=== PATIENT | male | born 1940 | race Caucasian/White ===

== ENCOUNTER 2017-04-13 10:17 | Inpatient (IN) | payer MEDICARE, OTHER ==
[2017-04-13] MEDS ORDERED: ONDANSETRON 4 MG/2 ML VIAL IVP STA (10:32)
[2017-04-13] MEDS ORDERED: PANTOPRAZOLE 40 MG/10 ML VIAL IVP STA (10:32)
[2017-04-13] MEDS ORDERED: SODIUM CHLORIDE 0.9% 500 ML IV STA (10:32)
--- NOTE | 2017-04-13 10:59 | ED ---
General Adult HPI - General Chief complaint: GI Bleed Stated complaint: GI Bleed Time Seen by Provider: 04/13/17 10:32 Source: patient, EMS, RN notes reviewed, old records reviewed Mode of arrival: EMS - History of Present Illness Initial comments: Chief complaint history of present illness this is a 76-year-old male who lives in a nursing facility. EMS was called because he had vomiting since last night. Has become coffee ground like material. This was witnessed by EMS at the facility. Patient does have past medical problems including schizophrenia and dementia so his answers to questions are not always fully accurate. Old chart obtained for confirmation. - Related Data Home Medications Medication Instructions Recorded Confirmed Aspirin 81 mg PO HS 01/21/15 04/13/17 Cranberry Conc/C/Bacill Coag 1 tab PO DAILY 01/21/15 04/13/17 [Cranberry Tablet] Levothyroxine Sodium [Synthroid] 50 mcg PO DAILY 01/21/15 04/13/17 Multivitamins, Thera [Theragran] 1 tab PO DAILY 01/21/15 04/13/17 cloZAPine [Clozaril] 200 mg PO BID 01/21/15 04/13/17 Divalproex Sodium [Depakote] 125 mg PO HS 04/13/17 04/13/17 HYDROcodone/APAP 5-325MG [[place] 1 tab PO DAILY PRN 04/13/17 04/13/17 5-325] Lisinopril [Prinivil] 5 mg PO DAILY 04/13/17 04/13/17 Pravastatin Sodium [Pravachol] 40 mg PO HS 04/13/17 04/13/17 Ranitidine HCl [Zantac] 75 mg PO HS 04/13/17 04/13/17 Tamsulosin HCl [Flomax] 0.4 mg PO HS 04/13/17 04/13/17 amLODIPine [Norvasc] 5 mg PO DAILY 04/13/17 04/13/17 Allergies Allergy/AdvReac Type Severity Reaction Status Date / Time No Known Allergies Allergy Verified 04/13/17 13:11 Review of Systems ROS Statement: Those systems with pertinent positive or pertinent negative responses have been documented in the HPI. Review of systems at this time the patient's answering no to chest pain headache denies abdominal pain. Patient is able to move upper and lower extremities without apparent difficulty. All systems were reviewed. Past medical problems significant for heart disease, previous CVA, hyperlipidemia, hypertension and hypothyroidism. Is also history from old chart suspecting schizophrenia. Patient denies smoking. No alcohol use of late. Family history patient cannot remember there is any cancer in the family. ROS Other: All systems not noted in ROS Statement are negative. Past Medical History Past Medical History: Coronary Artery Disease (CAD), CVA/TIA, Dementia, Hyperlipidemia, Hypertension, Thyroid Disorder History of Any Multi-Drug Resistant Organisms: None Reported Past Surgical History: No Surgical Hx Reported Past Psychological History: Schizophrenia Smoking Status: Never smoker Past Alcohol Use History: None Reported Past Drug Use History: None Reported General Exam - General Exam Comments Initial Comments: General: The patient is awake and alert, in no distress, and does not appear acutely ill. Brought emergency room because of coffee ground emesis since last night. Temp afebrile pulse 100 respiratory rate 20 pulse ox 94% on room air blood pressure 134/68 Eye: Pupils are equal, round and reactive to light, extra-ocular movements are intact ; there is normal conjunctiva bilaterally. No signs of icterus. Ears, nose, mouth and throat: There are moist mucous membranes and no oral lesions. Neck: The neck is supple, there is no tenderness, no anterior cervical lymphadenopathy. No complaint of discomfort with neck movement. Cardiovascular: There is a regular rate and rhythm. No murmur, rub or gallop is appreciated. Respiratory: Lungs are clear to auscultation, respirations are non-labored, breath sounds are equal. No wheezes, stridor, rales, or rhonchi. He is denying shortness of breath. Gastrointestinal: Patient's abdomen appears to be bloated. Patient denies this is the case. Mildly tympanitic. Active bowel sounds. No organomegaly appreciated. Patient has been vomiting coffee ground material. The patient has dark blood around his mouth. Currently no gastric material available to test. Rectal examination done with registered nurse [place]. Hard stool noted in the vault. Guaiac negative at bedside. Sample sent on guaiac card to the lab. Back: There is no tenderness to palpation in the midline. Musculoskeletal: Normal ROM, no tenderness, There is no pedal edema. There is no calf tenderness or swelling. Sensation intact. Pulses equal bilaterally 2+. Neurological: Moving upper and lower extremities in bed without difficulty. Skin: Skin is warm and dry and no rashes or lesions are noted. Psychiatric: History of schizophrenia. Cooperative now. Course Vital Signs 04/13/17 04/13/17 04/13/17 10:48 10:50 12:00 Temperature 99 F Pulse Rate 100 103 H Respiratory 20 20 Rate Blood Pressure 134/68 135/66 O2 Sat by Pulse 94 L 94 L Oximetry Medical Decision Making - Medical Decision Making Medical decision making the patient's white count 17.5 hemoglobin 15 hematocrit of 48. Stool guaiac was negative. INR 1.0. Potassium 4.1. BUN 31 creatinine 1.3 through the GFR 52. Glucose 217. Cardiac enzymes normal troponin less than 0.012. X-rays of the abdomen were done and reviewed by radiologist his impression is there is elevation of the left diaphragm. There is mild gaseous distention of the colon. There are scattered air-fluid levels. No free air is seen. No unusual calcifications are seen. Impression findings most consistent with mild ileus. As read by Dr. Gamboa I spoke with Dr. Wakefield on-call for Dr. Garcias. Patient be admitted his service. With a gastroenterology consultation. - Lab Data Result diagrams: 04/13/17 11:02 04/13/17 11:02 Lab Results 04/13/17 04/13/17 04/13/17 Range/Units 11:00 11:02 11:02 WBC 17.5 H (3.8-10.6) k/uL RBC 4.92 (4.30-5.90) m/uL Hgb 15.6 (13.0-17.5) gm/dL Hct 48.0 (39.0-53.0) % MCV 97.5 (80.0-100.0) fL MCH 31.6 (25.0-35.0) pg MCHC 32.4 (31.0-37.0) g/dL RDW 13.5 (11.5-15.5) % Plt Count 213 (150-450) k/uL Neutrophils % 87 % Lymphocytes % 9 % Monocytes % 4 % Eosinophils % 0 % Basophils % 0 % Neutrophils # 15.2 H (1.3-7.7) k/uL Lymphocytes # 1.5 (1.0-4.8) k/uL Monocytes # 0.6 (0-1.0) k/uL Eosinophils # 0.0 (0-0.7) k/uL Basophils # 0.0 (0-0.2) k/uL PT 10.3 (9.0-12.0) sec INR 1.0 (<1.2) APTT 28.5 (22.0-30.0) sec Sodium (137-145) mmol/L Potassium (3.5-5.1) mmol/L Chloride (98-107) mmol/L Carbon Dioxide (22-30) mmol/L Anion Gap mmol/L BUN (9-20) mg/dL Creatinine (0.66-1.25) mg/dL Est GFR (MDRD) Af Amer (>60 ml/min/1.73 sqM) Est GFR (MDRD) Non-Af (>60 ml/min/1.73 sqM) Glucose (74-99) mg/dL Calcium (8.4-10.2) mg/dL Total Bilirubin (0.2-1.3) mg/dL AST (17-59) U/L ALT (21-72) U/L Alkaline Phosphatase (38-126) U/L Total Creatine Kinase (55-170) U/L CK-MB (CK-2) (0.0-2.4) ng/mL CK-MB (CK-2) Rel Index Troponin I (0.000-0.034) ng/mL Total Protein (6.3-8.2) g/dL Albumin (3.5-5.0) g/dL Stool Occult Blood Negative (Negative) 04/13/17 04/13/17 Range/Units 11:02 11:02 WBC (3.8-10.6) k/uL RBC (4.30-5.90) m/uL Hgb (13.0-17.5) gm/dL Hct (39.0-53.0) % MCV (80.0-100.0) fL MCH (25.0-35.0) pg MCHC (31.0-37.0) g/dL RDW (11.5-15.5) % Plt Count (150-450) k/uL Neutrophils % % Lymphocytes % % Monocytes % % Eosinophils % % Basophils % % Neutrophils # (1.3-7.7) k/uL Lymphocytes # (1.0-4.8) k/uL Monocytes # (0-1.0) k/uL Eosinophils # (0-0.7) k/uL Basophils # (0-0.2) k/uL PT (9.0-12.0) sec INR (<1.2) APTT (22.0-30.0) sec Sodium 145 (137-145) mmol/L Potassium 4.1 (3.5-5.1) mmol/L Chloride 103 (98-107) mmol/L Carbon Dioxide 27 (22-30) mmol/L Anion Gap 15 mmol/L BUN 31 H (9-20) mg/dL Creatinine 1.33 H (0.66-1.25) mg/dL Est GFR (MDRD) Af Amer >60 (>60 ml/min/1.73 sqM) Est GFR (MDRD) Non-Af 52 (>60 ml/min/1.73 sqM) Glucose 217 H (74-99) mg/dL Calcium 9.6 (8.4-10.2) mg/dL Total Bilirubin 0.5 (0.2-1.3) mg/dL AST 26 (17-59) U/L ALT 42 (21-72) U/L Alkaline Phosphatase 92 (38-126) U/L Total Creatine Kinase 35 L (55-170) U/L CK-MB (CK-2) 1.3 (0.0-2.4) ng/mL CK-MB (CK-2) Rel Index 3.7 Troponin I <0.012 (0.000-0.034) ng/mL Total Protein 7.8 (6.3-8.2) g/dL Albumin 4.4 (3.5-5.0) g/dL Stool Occult Blood (Negative) Disposition Clinical Impression: Upper gastrointestinal bleed Disposition: ADMITTED IP TO THIS [facility] Condition: Fair Referrals: Rob He MD [Primary Care Provider] - 1-2 days
[2017-04-13 11:24] LABS: Basophils % (A) 0 %; CHCM 31.9; Eosinophils % (A) 0 %; HDW 2.27; HGB 15.6 gm/dL (13.0-17.5); Luc # (Auto) 0.18; Luc % (Auto) 1; Lymphocytes # (A) 1.5 k/uL (1.0-4.8); Lymphocytes % (A) 9 %; MCH 31.6 pg (25.0-35.0); MCHC 32.4 g/dL (31.0-37.0); MCV 97.5 fL (80.0-100.0); Mean Platelet Volume 7.8; Monocytes # (A) 0.6 k/uL (0-1.0); Monocytes % (A) 4 %; Neutrophils # (A) 15.2 k/uL (1.3-7.7); Neutrophils % (A) 87 %; RBC 4.92 m/uL (4.30-5.90); RDW 13.5 % (11.5-15.5); WBC 17.5 k/uL (3.8-10.6); WBC (Perox) 17.77
[2017-04-13 11:40] LABS: Partial Thromboplastin Time 28.5 sec (22.0-30.0); Prothrombin Time 10.3 sec (9.0-12.0)
[2017-04-13 11:45] LABS: Creatine Kinase 35 U/L (55-170)
[2017-04-13 11:52] LABS: ALT 42 U/L (21-72); AST 26 U/L (17-59); Alkaline Phosphatase 92 U/L (38-126); Anion Gap 15 mmol/L; Blood Urea Nitrogen 31 mg/dL (9-20); Calcium 9.6 mg/dL (8.4-10.2); Carbon Dioxide 27 mmol/L (22-30); Chloride 103 mmol/L (98-107); Glucose 217 mg/dL (74-99); Non-African American GFR(MDRD) 52 (>60 ml/min/1.73 sqM); Potassium 4.1 mmol/L (3.5-5.1); Sodium 145 mmol/L (137-145); Total Bilirubin 0.5 mg/dL (0.2-1.3); Total Protein 7.8 g/dL (6.3-8.2)
[2017-04-13 11:57] LABS: Creatine Kinase MB 1.3 ng/mL (0.0-2.4); Troponin I <0.012 ng/mL (0.000-0.034)
--- NOTE | 2017-04-13 12:26 | XR ---
EXAMINATION TYPE: XR abdomen 2V , 2 VIEWS DATE OF EXAM ORDERED: 04/13/2017 HISTORY: Pain. COMPARISON: None. FINDINGS: There is elevation of the left hemidiaphragm. There is mild gaseous distention of colon. T here are scattered air-fluid levels. No free air is seen. No unusual calcifications are seen. IMPRESSION: FINDINGS MOST CONSISTENT WITH MILD ILEUS.
[2017-04-13] MEDS ORDERED: NALOXONE 0.4 MG/ML 1 ML VIAL IV PRN (13:59)
[2017-04-13] MEDS ORDERED: ONDANSETRON 4 MG/2 ML VIAL IVP PRN (13:59)
[2017-04-13 15:31] VITALS: BMI 25.0
--- NOTE | 2017-04-13 16:22 | P.HPIM ---
History of Present Illness Patient is 76-year-old with history of schizophrenia and some kind of dementia came in with complaints of multiple episodes of nausea vomiting and coffee- ground emesis. I'm unable to get any History from the patient. Patient had an abdominal x-ray which did show ileus although patient is not having any nausea vomiting. Patient was started on Protonix twice a day will give something for constipation if it improves patient will not require any NG tube. Although patient will be nothing by mouth and patient was started on IV fluids. Gastroenterology was consulted for upper GI bleed. Review of Systems Unable to often due to his clinical condition Past Medical History Past Medical History: Coronary Artery Disease (CAD), CVA/TIA, Dementia, Hyperlipidemia, Hypertension, Thyroid Disorder Additional Past Medical History / Comment(s): Tardive dyskinesia, seizure disorder, chronic constipation, glaucoma, DM, History of Any Multi-Drug Resistant Organisms: None Reported Past Surgical History: No Surgical Hx Reported Past Psychological History: Schizophrenia Smoking Status: Never smoker Past Alcohol Use History: None Reported Past Drug Use History: None Reported - Past Family History Mother History Unknown: Yes Medications and Allergies Home Medications Medication Instructions Recorded Confirmed Type Aspirin 81 mg PO HS 01/21/15 04/13/17 History Cranberry Conc/C/Bacill Coag 1 tab PO DAILY 01/21/15 04/13/17 History [Cranberry Tablet] Levothyroxine Sodium [Synthroid] 50 mcg PO DAILY 01/21/15 04/13/17 History Multivitamins, Thera [Theragran] 1 tab PO DAILY 01/21/15 04/13/17 History cloZAPine [Clozaril] 200 mg PO BID 01/21/15 04/13/17 History Divalproex Sodium [Depakote] 125 mg PO HS 04/13/17 04/13/17 History HYDROcodone/APAP 5-325MG [[place] 1 tab PO DAILY PRN 04/13/17 04/13/17 History 5-325] Lisinopril [Prinivil] 5 mg PO DAILY 04/13/17 04/13/17 History Pravastatin Sodium [Pravachol] 40 mg PO HS 04/13/17 04/13/17 History Ranitidine HCl [Zantac] 75 mg PO HS 04/13/17 04/13/17 History Tamsulosin HCl [Flomax] 0.4 mg PO HS 04/13/17 04/13/17 History amLODIPine [Norvasc] 5 mg PO DAILY 04/13/17 04/13/17 History Allergies Allergy/AdvReac Type Severity Reaction Status Date / Time No Known Allergies Allergy Verified 04/13/17 13:11 Physical Exam Vitals: Vital Signs Temp Pulse Pulse Resp BP BP Pulse Ox 04/13/17 15:24 98.3 F 89 16 129/73 97 04/13/17 14:43 98 F 94 18 130/74 91 L 04/13/17 14:19 99.1 F 04/13/17 14:00 95 18 127/68 91 L 04/13/17 12:00 103 H 20 135/66 94 L 04/13/17 10:50 99 F 04/13/17 10:48 100 20 134/68 94 L Intake and Output 04/13/17 04/13/17 04/13/17 06:59 14:59 22:59 Intake Total 500 Balance 500 Intake: Amount of Fluid Infused ( 500 ml) Other: Weight 68.039 kg 68.039 kg Patient Weight 04/14/17 06:59 Weight 68.039 kg PHYSICAL EXAMINATION: GENERAL: The patient is alert and able to assess orientation as patient is mostly nonverbal doesn't answer much of questions, not in any acute distress. Well developed, well nourished. HEENT: Pupils are round and equally reacting to light. EOMI. No scleral icterus. No conjunctival pallor. Normocephalic, atraumatic. No pharyngeal erythema. No thyromegaly. CARDIOVASCULAR: S1 and S2 present. No murmurs, rubs, or gallops. PULMONARY: Chest is clear to auscultation, no wheezing or crackles. ABDOMEN: Soft, distended, sluggish bowel sounds no organomegaly no tenderness. MUSCULOSKELETAL: No joint swelling or deformity. EXTREMITIES: No cyanosis, clubbing, or pedal edema. NEUROLOGICAL: Gross neurological examination did not reveal any focal deficits. SKIN: No rashes. Results CBC & Chem 7: 04/13/17 11:02 04/13/17 11:02 Labs: Abnormal Lab Results - Last 24 Hours (Table) 04/13/17 04/13/17 04/13/17 Range/Units 11:02 11:02 11:02 WBC 17.5 H (3.8-10.6) k/uL Neutrophils # 15.2 H (1.3-7.7) k/uL BUN 31 H (9-20) mg/dL Creatinine 1.33 H (0.66-1.25) mg/dL Glucose 217 H (74-99) mg/dL Total Creatine Kinase 35 L (55-170) U/L Assessment and Plan Plan: #1 upper GI bleed: Secondary to possible gastritis for which patient on Protonix twice a day gastric body was consulted. #2 possible ileus: Patient will be nothing by mouth, IV fluids and an enema. #3 acute renal failure: Secondary to severe intravascular well and patient expected to improve with IV fluids. #4 leukocytosis: Reactive without any other signs or symptoms of infection. #5 type 2 diabetes mellitus: Sliding scale insulin. #5 hypertension continue with amlodipine hold off on losartan due to acute renal failure #7 hypothyroidism continue with levothyroxine #8 seizure disorder for which patient is on Depakote which will be continued no history of recent seizures
[2017-04-13] MEDS ORDERED: LACTULOSE 20 GM/30 ML CUP PO ONE (16:38)
[2017-04-13] MEDS: SODIUM CHLORIDE 0.9% 1,000 ML IV SCH (17:48)
[2017-04-13] MEDS: INSULIN LISPRO (humaLOG) 300 UNIT/3 ML VIAL SQ SCH ×2 (19:44→21:16)
[2017-04-13 19:52] LABS: Glucose,Whole Blood 154 mg/dL (75-99)
[2017-04-13] MEDS: PANTOPRAZOLE 40 MG/10 ML VIAL IV SCH (21:16)
[2017-04-13] MEDS: DIVALPROEX SPRINKLE 125 MG CAP.SPRINK PO SCH (21:16)
[2017-04-14] MEDS: LEVOTHYROXINE 50 MCG TAB PO SCH (06:10)
[2017-04-14] MEDS: SODIUM CHLORIDE 0.9% 1,000 ML IV SCH ×3 (06:10→20:03)
[2017-04-14] MEDS: INSULIN LISPRO (humaLOG) 300 UNIT/3 ML VIAL SQ SCH ×4 (07:19→20:04)
[2017-04-14 07:20] LABS: Glucose,Whole Blood 121 mg/dL (75-99)
[2017-04-14] MEDS: amLODIPine 5 MG TAB PO SCH (07:22)
[2017-04-14] MEDS: PANTOPRAZOLE 40 MG/10 ML VIAL IV SCH ×2 (07:22→20:04)
[2017-04-14 07:50] LABS: Basophils % (A) 0 %; CH 31.2; CHCM 31.8; Eosinophils # (A) 0.1 k/uL (0-0.7); Eosinophils % (A) 1 %; HDW 2.28; Luc # (Auto) 0.38; Luc % (Auto) 2; Lymphocytes # (A) 3.2 k/uL (1.0-4.8); Lymphocytes % (A) 20 %; MCH 31.6 pg (25.0-35.0); MCHC 31.9 g/dL (31.0-37.0); MCV 98.8 fL (80.0-100.0); Mean Platelet Volume 8.3; Monocytes # (A) 0.7 k/uL (0-1.0); Monocytes % (A) 5 %; Neutrophils # (A) 11.9 k/uL (1.3-7.7); Neutrophils % (A) 73 %; RBC 3.85 m/uL (4.30-5.90); RDW 13.8 % (11.5-15.5); WBC 16.4 k/uL (3.8-10.6); WBC (Perox) 16.79
[2017-04-14 07:54] LABS: ALT 33 U/L (21-72); AST 19 U/L (17-59); Alkaline Phosphatase 72 U/L (38-126); Anion Gap 9 mmol/L; Blood Urea Nitrogen 24 mg/dL (9-20); Calcium 8.5 mg/dL (8.4-10.2); Carbon Dioxide 24 mmol/L (22-30); Chloride 111 mmol/L (98-107); Glucose 127 mg/dL (74-99); Non-African American GFR(MDRD) >60 (>60 ml/min/1.73 sqM); Sodium 144 mmol/L (137-145); Total Bilirubin 0.5 mg/dL (0.2-1.3); Total Protein 6.2 g/dL (6.3-8.2)
[2017-04-14 07:58] LABS: HGB 12.1 gm/dL (13.0-17.5)
[2017-04-14] MEDS ORDERED: PANTOPRAZOLE 40 MG/10 ML VIAL IV SCH (09:00)
[2017-04-14 10:43] LABS: Hemoglobin A1C 6.8 % (4.2-6.1)
[2017-04-14 11:45] LABS: Glucose,Whole Blood 108 mg/dL (75-99)
[2017-04-14] MEDS ORDERED: LACTULOSE 20 GM/30 ML CUP PO ONE (12:47)
[2017-04-14] MEDS ORDERED: LACTULOSE 20 GM/30 ML CUP PO PRN (12:48)
[2017-04-14] MEDS ORDERED: POLYETHYLENE GLYCOL 3350 17 GM POWD.PACK PO PRN (12:48)
--- NOTE | 2017-04-14 14:40 | P.PN ---
Subjective Patient was admitted with upper GI bleed and ileus patient had a small bowel movement his bowel sounds are present today. Unable to get much of the history from the patient Objective - Vital Signs Vital signs: Vital Signs Temp 98.6 F 04/14/17 07:38 Pulse 80 04/14/17 07:38 Resp 16 04/14/17 07:38 BP 154/73 04/14/17 07:38 Pulse Ox 91 L 04/14/17 07:38 Intake & Output 04/13/17 04/14/17 04/14/17 18:59 06:59 18:59 Intake Total 500 1150 800 Balance 500 1150 800 Weight 68.039 kg Intake: Amount of Fluid Infused ( 500 ml) Intake, IV Titration 1150 800 Amount Sodium Chloride 0.9% 1, 1150 800 000 ml @ 100 mls/hr IV . Q10H [facility] Rx#:[id number] Other: Voiding Method Toilet # Voids 1 - Exam GENERAL: The patient is alert and able to assess orientation as patient is mostly nonverbal doesn't answer much of questions, not in any acute distress. Well developed, well nourished. HEENT: Pupils are round and equally reacting to light. EOMI. No scleral icterus. No conjunctival pallor. Normocephalic, atraumatic. No pharyngeal erythema. No thyromegaly. CARDIOVASCULAR: S1 and S2 present. No murmurs, rubs, or gallops. PULMONARY: Chest is clear to auscultation, no wheezing or crackles. ABDOMEN: Soft, distended, bowel sounds are present MUSCULOSKELETAL: No joint swelling or deformity. EXTREMITIES: No cyanosis, clubbing, or pedal edema. NEUROLOGICAL: Gross neurological examination did not reveal any focal deficits. SKIN: No rashes. - Labs CBC & Chem 7: 04/14/17 07:01 04/14/17 07:01 Labs: Abnormal Lab Results - Last 24 Hours (Table) 04/13/17 04/13/17 04/14/17 Range/Units 11:02 19:51 06:39 WBC (3.8-10.6) k/uL RBC (4.30-5.90) m/uL Hgb (13.0-17.5) gm/dL Hct (39.0-53.0) % Neutrophils # (1.3-7.7) k/uL Chloride (98-107) mmol/L BUN (9-20) mg/dL Glucose (74-99) mg/dL POC Glucose (mg/dL) 154 H 121 H (75-99) mg/dL Hemoglobin A1c 6.8 H (4.2-6.1) % Total Protein (6.3-8.2) g/dL Albumin (3.5-5.0) g/dL 04/14/17 04/14/17 04/14/17 Range/Units 07:01 07:01 11:40 WBC 16.4 H (3.8-10.6) k/uL RBC 3.85 L (4.30-5.90) m/uL Hgb 12.1 L D (13.0-17.5) gm/dL Hct 38.0 L (39.0-53.0) % Neutrophils # 11.9 H (1.3-7.7) k/uL Chloride 111 H (98-107) mmol/L BUN 24 H (9-20) mg/dL Glucose 127 H (74-99) mg/dL POC Glucose (mg/dL) 108 H (75-99) mg/dL Hemoglobin A1c (4.2-6.1) % Total Protein 6.2 L (6.3-8.2) g/dL Albumin 3.4 L (3.5-5.0) g/dL Assessment and Plan Plan: #1 upper GI bleed: Secondary to possible gastritis for which patient on Protonix twice a day gastric body was consulted. #2 possible ileus: Patient will be started on diet will advance as tolerated will use lactulose for constipation #3 acute renal failure: Secondary to severe intravascular well and patient expected to improve with IV fluids. #4 leukocytosis: Reactive without any other signs or symptoms of infection. #5 type 2 diabetes mellitus: Sliding scale insulin. #5 hypertension continue with amlodipine hold off on losartan due to acute renal failure #7 hypothyroidism continue with levothyroxine #8 seizure disorder for which patient is on Depakote which will be continued no history of recent seizures
--- NOTE | 2017-04-14 15:17 | P.GSCN ---
History of Present Illness Reason for Consult: Upper GI bleed History of present illness: The patient is a 76-year-old white male with a history of schizophrenia and dementia. He was brought to the hospital with a complaint of nausea vomiting and coffee-ground emesis. The patient is unable to elicit any history. The patient has not had further vomiting since admission and we are awaiting a GI consultation. Review of Systems - Constitutional Constitutional Comment(s): Unable to obtain from patient however from chart he was noted to have coronary artery disease, CVA/TIA, dementia, hyperlipidemia, hypertension, thyroid disorder, tardive dyskinesia, seizure disorder, chronic constipation, glaucoma, and diabetes - Cardiovascular Cardiovascular Comment(s): Coronary artery disease as per chart Hypertension - Respiratory Respiratory Comment(s): Never smoker as per chart - Gastrointestinal Reports as per HPI, Reports coffee ground emesis - Psychiatric Reports as per HPI - Endocrine Endocrine Comment(s): Diabetes Past Medical History Past Medical History: Coronary Artery Disease (CAD), CVA/TIA, Dementia, Hyperlipidemia, Hypertension, Thyroid Disorder Additional Past Medical History / Comment(s): Tardive dyskinesia, seizure disorder, chronic constipation, glaucoma, DM, History of Any Multi-Drug Resistant Organisms: None Reported Past Surgical History: No Surgical Hx Reported Additional Past Surgical History / Comment(s): Patient with a well-healed scar in lower abdomen uncertain as to operative procedure Past Psychological History: Schizophrenia Smoking Status: Never smoker Past Alcohol Use History: None Reported Past Drug Use History: None Reported - Past Family History Mother History Unknown: Yes Medications and Allergies Home Medications Medication Instructions Recorded Confirmed Type Aspirin 81 mg PO HS 01/21/15 04/13/17 History Cranberry Conc/C/Bacill Coag 1 tab PO DAILY 01/21/15 04/13/17 History [Cranberry Tablet] Levothyroxine Sodium [Synthroid] 50 mcg PO DAILY 01/21/15 04/13/17 History Multivitamins, Thera [Theragran] 1 tab PO DAILY 01/21/15 04/13/17 History cloZAPine [Clozaril] 200 mg PO BID 01/21/15 04/13/17 History Divalproex Sodium [Depakote] 125 mg PO HS 04/13/17 04/13/17 History HYDROcodone/APAP 5-325MG [[place] 1 tab PO DAILY PRN 04/13/17 04/13/17 History 5-325] Lisinopril [Prinivil] 5 mg PO DAILY 04/13/17 04/13/17 History Pravastatin Sodium [Pravachol] 40 mg PO HS 04/13/17 04/13/17 History Ranitidine HCl [Zantac] 75 mg PO HS 04/13/17 04/13/17 History Tamsulosin HCl [Flomax] 0.4 mg PO HS 04/13/17 04/13/17 History amLODIPine [Norvasc] 5 mg PO DAILY 04/13/17 04/13/17 History Allergies Allergy/AdvReac Type Severity Reaction Status Date / Time No Known Allergies Allergy Verified 04/13/17 13:11 Surgical - Exam Vital Signs Pulse Resp BP Pulse Ox 100 20 134/68 94 L 04/13/17 10:48 04/13/17 10:48 04/13/17 10:48 04/13/17 10:48 - General well developed, no distress - Eyes normal ocular movement - ENT normal pinna, normal nares, no hearing loss - Neck no masses, trachea midline, no lymphadectomy, no venous distension - Respiratory Decreased breath sounds at the bases - Cardiovascular Rhythm: regular Heart Sounds: normal: S1, S2 - Abdomen Hypoactive bowel sounds Mildly distended Midline abdominal incision well-healed Abdomen: soft - Psychiatric Schizophrenia, dementia Results - Labs 04/14/17 07:01 04/14/17 07:01 Abnormal Lab Results - Last 24 Hours (Table) 04/13/17 04/13/17 04/14/17 Range/Units 11:02 19:51 06:39 WBC (3.8-10.6) k/uL RBC (4.30-5.90) m/uL Hgb (13.0-17.5) gm/dL Hct (39.0-53.0) % Neutrophils # (1.3-7.7) k/uL Chloride (98-107) mmol/L BUN (9-20) mg/dL Glucose (74-99) mg/dL POC Glucose (mg/dL) 154 H 121 H (75-99) mg/dL Hemoglobin A1c 6.8 H (4.2-6.1) % Total Protein (6.3-8.2) g/dL Albumin (3.5-5.0) g/dL 04/14/17 04/14/17 04/14/17 Range/Units 07:01 07:01 11:40 WBC 16.4 H (3.8-10.6) k/uL RBC 3.85 L (4.30-5.90) m/uL Hgb 12.1 L D (13.0-17.5) gm/dL Hct 38.0 L (39.0-53.0) % Neutrophils # 11.9 H (1.3-7.7) k/uL Chloride 111 H (98-107) mmol/L BUN 24 H (9-20) mg/dL Glucose 127 H (74-99) mg/dL POC Glucose (mg/dL) 108 H (75-99) mg/dL Hemoglobin A1c (4.2-6.1) % Total Protein 6.2 L (6.3-8.2) g/dL Albumin 3.4 L (3.5-5.0) g/dL Diabetes panel 04/13/17 04/14/17 Range/Units 11:02 07:01 Sodium 144 (137-145) mmol/L Potassium 4.0 (3.5-5.1) mmol/L Chloride 111 H (98-107) mmol/L Carbon Dioxide 24 (22-30) mmol/L BUN 24 H (9-20) mg/dL Creatinine 0.96 (0.66-1.25) mg/dL Glucose 127 H (74-99) mg/dL Hemoglobin A1c 6.8 H (4.2-6.1) % Calcium 8.5 (8.4-10.2) mg/dL AST 19 (17-59) U/L ALT 33 (21-72) U/L Alkaline Phosphatase 72 (38-126) U/L Total Protein 6.2 L (6.3-8.2) g/dL Albumin 3.4 L (3.5-5.0) g/dL Calcium panel 04/14/17 Range/Units 07:01 Calcium 8.5 (8.4-10.2) mg/dL Albumin 3.4 L (3.5-5.0) g/dL Pituitary panel 04/14/17 Range/Units 07:01 Sodium 144 (137-145) mmol/L Potassium 4.0 (3.5-5.1) mmol/L Chloride 111 H (98-107) mmol/L Carbon Dioxide 24 (22-30) mmol/L BUN 24 H (9-20) mg/dL Creatinine 0.96 (0.66-1.25) mg/dL Glucose 127 H (74-99) mg/dL Calcium 8.5 (8.4-10.2) mg/dL Adrenal panel 04/14/17 Range/Units 07:01 Sodium 144 (137-145) mmol/L Potassium 4.0 (3.5-5.1) mmol/L Chloride 111 H (98-107) mmol/L Carbon Dioxide 24 (22-30) mmol/L BUN 24 H (9-20) mg/dL Creatinine 0.96 (0.66-1.25) mg/dL Glucose 127 H (74-99) mg/dL Calcium 8.5 (8.4-10.2) mg/dL Total Bilirubin 0.5 (0.2-1.3) mg/dL AST 19 (17-59) U/L ALT 33 (21-72) U/L Alkaline Phosphatase 72 (38-126) U/L Total Protein 6.2 L (6.3-8.2) g/dL Albumin 3.4 L (3.5-5.0) g/dL Assessment and Plan Plan: Impression/plan: 1. 76-year-old gentleman with schizophrenia and dementia 2. Upper GI bleed 3. Prior abdominal surgery uncertain as to what 4. Seizure disorder 5. Hypertension 6. Diabetes 7. Leukocytosis 3. Possible ileus Plan: Patient is a 76-year-old gentleman with schizophrenia and dementia. He presents with an upper GI bleed. He is going to be seen by gastroenterology. His hemoglobin has been stable at this time he has had no further upper GI bleeding. At this time we will follow with you. Thank you for this consultation.
[2017-04-14 17:43] LABS: Glucose,Whole Blood 123 mg/dL (75-99)
[2017-04-14 19:54] LABS: Glucose,Whole Blood 139 mg/dL (75-99)
[2017-04-14] MEDS: DIVALPROEX SPRINKLE 125 MG CAP.SPRINK PO SCH (20:04)
[2017-04-15] MEDS: LEVOTHYROXINE 50 MCG TAB PO SCH (05:57)
[2017-04-15] MEDS: SODIUM CHLORIDE 0.9% 1,000 ML IV SCH ×2 (05:57→14:57)
[2017-04-15 06:49] LABS: Glucose,Whole Blood 108 mg/dL (75-99)
[2017-04-15] MEDS: INSULIN LISPRO (humaLOG) 300 UNIT/3 ML VIAL SQ SCH ×4 (07:08→21:00)
[2017-04-15] MEDS: PANTOPRAZOLE 40 MG/10 ML VIAL IV SCH ×2 (08:10→20:11)
[2017-04-15] MEDS: amLODIPine 5 MG TAB PO SCH (08:11)
--- NOTE | 2017-04-15 10:46 | P.PN ---
Subjective 76-year-old male being seen resting in bed. Patient does have a past medical history of schizophrenia with dementia. Patient presented to the emergency room with a chief complaint of developing nausea vomiting coffee-ground emesis. This been no further vomiting since admission hemoglobin on the 06.28. The labs today. A GI consultation currently pending. Hemodynamically stable Objective - Vital Signs Vital signs: Vital Signs Temp 98.6 F 04/15/17 06:54 Pulse 71 04/15/17 06:54 Resp 16 04/15/17 07:02 BP 136/73 04/15/17 06:54 Pulse Ox 94 L 04/15/17 06:54 Intake & Output 04/14/17 04/15/17 04/15/17 18:59 06:59 18:59 Intake Total 800 1550 Balance 800 1550 Intake: Intake, IV Titration 800 1150 Amount Sodium Chloride 0.9% 1, 800 1150 000 ml @ 100 mls/hr IV . Q10H [facility] Rx#:[id number] Oral 400 Other: Voiding Method Toilet Toilet # Voids 3 - Exam Physical exam 76-year-old male sitting up in bed appears in no acute distress Lungs on room air sats are documented 94% no cough noted essentially clear Heart S1-S2 audible and regular no murmur Abdomen no facial grimacing with palpitation to the abdominal wall bowel tones present no stool no reports of nausea vomiting tolerating clear liquid diet nontender not distended Extremity no edema noted - Labs CBC & Chem 7: 04/14/17 07:01 04/14/17 07:01 Labs: Abnormal Lab Results - Last 24 Hours (Table) 04/13/17 04/14/17 04/14/17 Range/Units 11:02 11:40 16:53 POC Glucose (mg/dL) 108 H 123 H (75-99) mg/dL Hemoglobin A1c 6.8 H (4.2-6.1) % 04/14/17 04/15/17 Range/Units 19:50 06:41 POC Glucose (mg/dL) 139 H 108 H (75-99) mg/dL Hemoglobin A1c (4.2-6.1) % Assessment and Plan Plan: Impression Schizophrenia with dementia Seizure disorder Present on admission coffee-ground emesis suspected upper GI bleed possible gastritis Prior abdominal surgeries uncertain as to type Hypertension essential Present on admission leukocytosis resolving Present on admission Possible mild ileus per x-ray abdominal 2 view Type 2 diabetes History of chronic constipation Plan Await GI input pending Monitor hemoglobin Resume home meds as appropriate DVT and GI prophylaxis No evidence of an acute abdomen Will follow with you addressing surgical issues as they arise The above impression and plan of care have been discussed and directed by signing physician. Kaylynn Abdalla nurse practitioner acting as scribe for signing physician.
[2017-04-15 11:52] LABS: Glucose,Whole Blood 103 mg/dL (75-99)
[2017-04-15] MEDS ORDERED: IV FLUID CONTINUATION 1,000 ML IV ONE (16:56)
[2017-04-15] MEDS ORDERED: LIDOCAINE 1% INJ 10MG/ML (20 ML MDV) ONE (16:56)
[2017-04-15] MEDS ORDERED: PROPOFOL 10 MG/ML 20 ML VIAL IV ONE (16:56)
--- NOTE | 2017-04-15 17:00 | P.CONS ---
History of Present Illness - Reason for Consult Consult date: 04/15/17 - History of Present Illness Patient is 76-year-old with history of schizophrenia and some kind of dementia came in with complaints of multiple episodes of nausea vomiting and coffee- ground emesis. I'm unable to get any History from the patient. Patient had an abdominal x-ray which did show ileus although patient is not having any nausea vomiting. Patient was started on Protonix twice a day will give something for constipation if it improves patient will not require any NG tube. Although patient will be nothing by mouth and patient was started on IV fluids Review of Systems Constitutional: No fevers at home over the past year denies weight gain, or loss. HEENT: Negative for migraines, blurred vision or loss, earaches, drainage, tinnitus, oral mucosal lesions, dysphagia, or odynophagia. Cardiac: Negative for chest pain, arrhythmias, or palpitation. Respiratory: Negative for shortness of breath, hemoptysis, cough, or sputum production. Gastrointestinal: See HPI for pertinent findings. Genitourinary: Negative for hematuria, urgency, frequency, polyuria, dysuria. Musculoskeletal: Negative for muscle aches, swelling, arthritis, and arthralgias. Neurologic: Negative for stroke or TIA. Endocrine: Negative for thyroid problems. Skin: Negative for rash or itching. Psychiatric: Negative history for depression and anxiety. Past Medical History Past Medical History: Coronary Artery Disease (CAD), CVA/TIA, Dementia, Hyperlipidemia, Hypertension, Thyroid Disorder Additional Past Medical History / Comment(s): Tardive dyskinesia, seizure disorder, chronic constipation, glaucoma, DM, History of Any Multi-Drug Resistant Organisms: None Reported Past Surgical History: No Surgical Hx Reported Additional Past Surgical History / Comment(s): Patient with a well-healed scar in lower abdomen uncertain as to operative procedure Past Psychological History: Schizophrenia Smoking Status: Never smoker Past Alcohol Use History: None Reported Past Drug Use History: None Reported - Past Family History Mother History Unknown: Yes Medications and Allergies Home Medications Medication Instructions Recorded Confirmed Type Aspirin 81 mg PO HS 01/21/15 04/13/17 History Cranberry Conc/C/Bacill Coag 1 tab PO DAILY 01/21/15 04/13/17 History [Cranberry Tablet] Levothyroxine Sodium [Synthroid] 50 mcg PO DAILY 01/21/15 04/13/17 History Multivitamins, Thera [Theragran] 1 tab PO DAILY 01/21/15 04/13/17 History cloZAPine [Clozaril] 200 mg PO BID 01/21/15 04/13/17 History Divalproex Sodium [Depakote] 125 mg PO HS 04/13/17 04/13/17 History HYDROcodone/APAP 5-325MG [[place] 1 tab PO DAILY PRN 04/13/17 04/13/17 History 5-325] Lisinopril [Prinivil] 5 mg PO DAILY 04/13/17 04/13/17 History Pravastatin Sodium [Pravachol] 40 mg PO HS 04/13/17 04/13/17 History Ranitidine HCl [Zantac] 75 mg PO HS 04/13/17 04/13/17 History Tamsulosin HCl [Flomax] 0.4 mg PO HS 04/13/17 04/13/17 History amLODIPine [Norvasc] 5 mg PO DAILY 04/13/17 04/13/17 History Allergies Allergy/AdvReac Type Severity Reaction Status Date / Time No Known Allergies Allergy Verified 04/13/17 13:11 Physical Exam Vitals: Vital Signs Temp Pulse Resp BP Pulse Ox 04/15/17 15:17 98.2 F 75 16 158/78 95 04/15/17 14:17 98.3 F 72 16 154/75 96 04/15/17 07:02 16 04/15/17 06:54 98.6 F 71 16 136/73 94 L 04/15/17 01:39 98.2 F 70 17 132/70 97 04/14/17 19:41 98.7 F 82 16 149/72 96 Intake and Output 04/15/17 04/15/17 04/15/17 06:59 14:59 22:59 Intake Total 800 Balance 800 Intake: Intake, IV Titration 800 Amount Sodium Chloride 0.9% 1, 800 000 ml @ 100 mls/hr IV . Q10H [facility] Rx#:[id number] Other: Voiding Method Toilet # Voids 3 2 General appearance: The patient is alert, oriented, in no acute distress. HET: Head is normocephalic and atraumatic. Pupils are equal and reactive. Oropharynx is clear without lesions. Neck: Supple without lymphadenopathy. Trachea midline. Heart: S1 S2. Regular rate and rhythm. Lungs: No crackles or wheezes are heard. Abdomen: Soft, no definite masses felt. No tenderness. No peritoneal signs. No palpable organomegaly. Bowel sounds present. Extremities: Normal skin color and turgor. No cyanosis, rash, ulceration, clubbing, or edema. Radial and pedal pulses are 2/4 bilaterally. Neurological: No focal deficits. Strength and sensation are grossly intact. Results CBC & Chem 7: 04/14/17 07:01 04/14/17 07:01 Labs: Abnormal Lab Results - Last 24 Hours (Table) 04/14/17 04/14/17 04/15/17 Range/Units 16:53 19:50 06:41 POC Glucose (mg/dL) 123 H 139 H 108 H (75-99) mg/dL 04/15/17 Range/Units 11:36 POC Glucose (mg/dL) 103 H (75-99) mg/dL Assessment and Plan Plan: Coffee-ground emesis likely on the basis of gastritis or peptic ulcer disease. Would proceed with upper endoscopy today. Further plans based on the findings.
--- NOTE | 2017-04-15 17:17 | P.PCN ---
Date of Procedure: 04/15/17 Procedure(s) Performed: Procedure: Esophagogastroduodenoscopy and biopsy. Preoperative diagnosis: Coffee-ground emesis. Postoperative diagnosis: Hiatal hernia and high-grade esophagitis consistent with acid reflux disease. Mild gastritis and duodenitis. No ulcers, gastric outlet obstruction or active bleeding at the time of this exam. Preparation sedation: Was provided by anesthesia. Brief clinical history: The Patient is 76-year-old with history of schizophrenia and some kind of dementia came in with complaints of multiple episodes of nausea vomiting and coffee-ground emesis. Patient had an abdominal x-ray which did show ileus. Patient was started on Protonix twice a day and was given treatment for constipation. We are asked to see him for his upper GI bleeding. Procedure: With the patient on his left lateral decubitus position and after informed consent and adequate sedation, I passed the Olympus-GIF 160 video upper endoscope through the cricopharyngeus down the esophagus. GE junction was around 38 cm from the incisors and there was a sliding hiatal hernia. The esophagus showed broad ulcerations and was covered with whitish exudates consistent with high-grade reflux esophagitis but there was no mucosal tears, varices or active bleeding. The endoscope was then passed into the stomach which was insufflated with air and inspected in detail including the retroflex view in the cardia. There was minimal mottling and erythema in the antrum but no ulcers or erosions. Pyloric channel, duodenal bulb post bulbar area and descending duodenum were examined and there was evidence of duodenitis but no ulcers, active bleeding or gastric outlet obstruction. I obtained biopsies from the antrum and esophagus then the endoscope was withdrawn. Plan: The patient will be allowed clear fluids and will monitor his blood counts closely for to continue PPI. Further plans based on his course and biopsy results.
[2017-04-15 17:50] LABS: Glucose,Whole Blood 102 mg/dL (75-99)
--- NOTE | 2017-04-15 18:25 | P.PN ---
Progress Note - Text Attending note. Date of service-04/15/2017 This patient was seen and examined by me . Discussed the patient with my nurse practitioner Ms. Brooks. Admitted with coffee-ground emesis. Nothing by mouth. Awaiting EGD by GI. Had a bowel movement yesterday evening.-Large size. On examination: Abdomen-soft nontender Investigations: Hemoglobin 12.1 Assessment and plan: Acute GI bleed, suspect upper, pending endoscopy, and the patient was on aspirin -Dementia, type unknown -Hyperlipidemia -Essential hypertension -Tardive dyskinesia -Seizure disorder, chronic -Hypothyroid Plan: Await EGD. Patient IV Protonix. And IV fluids. Care was discussed with the patient. Check hemoglobin.
[2017-04-15] MEDS ORDERED: IPRATROPIUM-ALBUTEROL 3 ML NEB INHALATION PRN (19:29)
[2017-04-15] MEDS: DIVALPROEX SPRINKLE 125 MG CAP.SPRINK PO SCH (20:11)
[2017-04-15 20:39] LABS: Glucose,Whole Blood 142 mg/dL (75-99)
[2017-04-16 00:43] VITALS: BP 127/66; PULSE 69; RESP 16; TEMP 98.6
[2017-04-16] MEDS: LEVOTHYROXINE 50 MCG TAB PO SCH (05:12)
[2017-04-16] MEDS: SODIUM CHLORIDE 0.9% 1,000 ML IV SCH ×2 (05:21→14:03)
[2017-04-16 07:08] LABS: Glucose,Whole Blood 111 mg/dL (75-99)
[2017-04-16] MEDS: INSULIN LISPRO (humaLOG) 300 UNIT/3 ML VIAL SQ SCH ×2 (07:14→12:07)
[2017-04-16 07:47] LABS: Basophils % (A) 0 %; CH 32.1; CHCM 33.1; Eosinophils # (A) 0.6 k/uL (0-0.7); Eosinophils % (A) 6 %; HCT 35.5 % (39.0-53.0); HDW 2.47; HGB 11.4 gm/dL (13.0-17.5); Luc # (Auto) 0.18; Luc % (Auto) 2; Lymphocytes # (A) 2.3 k/uL (1.0-4.8); Lymphocytes % (A) 25 %; MCH 31.3 pg (25.0-35.0); MCHC 32.1 g/dL (31.0-37.0); MCV 97.6 fL (80.0-100.0); Mean Platelet Volume 8.6; Monocytes # (A) 0.6 k/uL (0-1.0); Monocytes % (A) 6 %; Neutrophils # (A) 5.5 k/uL (1.3-7.7); Neutrophils % (A) 60 %; RBC 3.64 m/uL (4.30-5.90); WBC 9.1 k/uL (3.8-10.6); WBC (Perox) 9.58
[2017-04-16 07:55] LABS: ALT 28 U/L (21-72); AST 19 U/L (17-59); Alkaline Phosphatase 69 U/L (38-126); Anion Gap 7 mmol/L; Blood Urea Nitrogen 9 mg/dL (9-20); Calcium 8.3 mg/dL (8.4-10.2); Carbon Dioxide 24 mmol/L (22-30); Chloride 111 mmol/L (98-107); Glucose 107 mg/dL (74-99); Non-African American GFR(MDRD) >60 (>60 ml/min/1.73 sqM); Potassium 3.8 mmol/L (3.5-5.1); Sodium 142 mmol/L (137-145); Total Bilirubin 0.4 mg/dL (0.2-1.3); Total Protein 5.5 g/dL (6.3-8.2)
[2017-04-16] MEDS: amLODIPine 5 MG TAB PO SCH (08:10)
[2017-04-16] MEDS: PANTOPRAZOLE 40 MG/10 ML VIAL IV SCH (09:25)
--- NOTE | 2017-04-16 10:52 | P.PN ---
Subjective Principal diagnosis: Gi bleed s/p EGD high grade esophagitis. tolerating diet. No bleeding. Hgb 11.4. Objective - Vital Signs Vital signs: Vital Signs Temp 98.6 F 04/16/17 00:42 Pulse 69 04/16/17 00:42 Resp 16 04/16/17 00:42 BP 127/66 04/16/17 00:42 Pulse Ox 95 04/16/17 00:42 Intake & Output 04/15/17 04/16/17 04/16/17 18:59 06:59 18:59 Intake Total 100 550 Output Total 1200 Balance 100 -650 Weight 68.039 kg Intake: IV 100 Oral 550 Output: Urine 1200 Other: Voiding Method Toilet Toilet # Voids 1 3 - Constitutional General appearance: Present: average body habitus - EENT Eyes: Present: normal appearance - Neck Neck: Present: normal ROM - Respiratory Respiratory: bilateral: CTA - Cardiovascular Heart sounds: normal: S1, S2 - Gastrointestinal General gastrointestinal: Present: soft - Integumentary Integumentary: Present: normal turgor - Neurologic Neurologic: Present: CNII-XII intact - Psychiatric Psychiatric: Present: A&O x's 3, appropriate affect - Labs CBC & Chem 7: 04/16/17 06:48 04/16/17 06:48 Labs: Abnormal Lab Results - Last 24 Hours (Table) 04/15/17 04/15/17 04/15/17 Range/Units 11:36 17:48 20:31 RBC (4.30-5.90) m/uL Hgb (13.0-17.5) gm/dL Hct (39.0-53.0) % Chloride (98-107) mmol/L Glucose (74-99) mg/dL POC Glucose (mg/dL) 103 H 102 H 142 H (75-99) mg/dL Calcium (8.4-10.2) mg/dL Total Protein (6.3-8.2) g/dL Albumin (3.5-5.0) g/dL 04/16/17 04/16/17 04/16/17 Range/Units 06:48 06:48 07:01 RBC 3.64 L (4.30-5.90) m/uL Hgb 11.4 L (13.0-17.5) gm/dL Hct 35.5 L (39.0-53.0) % Chloride 111 H (98-107) mmol/L Glucose 107 H (74-99) mg/dL POC Glucose (mg/dL) 111 H (75-99) mg/dL Calcium 8.3 L (8.4-10.2) mg/dL Total Protein 5.5 L (6.3-8.2) g/dL Albumin 2.8 L (3.5-5.0) g/dL Assessment and Plan (1) Upper gastrointestinal bleed Narrative/Plan: High grade esophagitis s/p EGD Status: Acute Plan: 1. DC per medicine. 2. Omeprazole 40 mg daily. 3. Advance diet. RTO 2 weeks. Assessment and plan of care discussed with Dr. Donaldson
[2017-04-16 12:04] LABS: Glucose,Whole Blood 122 mg/dL (75-99)
--- NOTE | 2017-04-16 13:42 | DS ---
DISCHARGE SUMMARY DATE OF ADMISSION: 04/13/2017 DATE OF DISCHARGE: 04/16/2017 FINAL DIAGNOSES: 1. Upper gastrointestinal bleed from severe esophagitis from being on aspirin. 2. Hiatal hernia. 3. Gastritis and duodenitis from being on aspirin. 4. Possibly Alzheimer's dementia, new onset type. 5. Hyperlipidemia. 6. Essential hypertension. 7. Tardive dyskinesia. 8. Seizure disorder, chronic. 9. Hypothyroid. CONSULTATION: 1. Dr. Donaldson from GI, who did an EGD. 2. Dr. Nereyda Palafox from general surgery. HOSPITAL COURSE: This patient presented with coffee-grounds emesis. EGD did show hiatal hernia with high-grade esophagitis consistent acid reflux disease, some gastritis and duodenitis. No ulcers were detected the patient's hemoglobin upon presentation was 15.6, it did drop down to 11.4, some of this could be hemoconcentration. Aspirin has been discontinued. On examination, abdomen is soft, nontender and tolerating a diet. He has been cleared by the consultants. DISCHARGE MEDICATIONS: 1. Cranberry tablet 1 tab p.o. daily. 2. Synthroid 50 mcg p.o. daily. 3. Multivitamin 1 tab p.o. daily. 4. Clozaril 200 mg p.o. b.i.d. 5. Depakote 125 mg p.o. q.h.s. 6. Prinivil 5 mg p.o. daily. 7. Pravachol 40 mg p.o. q.h.s. 8. Flomax 0.4 mg p.o. q.h.s. 9. Norvasc 5 mg p.o. daily. 10.[place] 5, one tab p.o. daily p.r.n. 11.Omeprazole 40 mg p.o. daily. 12.Aspirin held for now. LABS: CBC in 3 days. DISPOSITION: ECF. Follow up with Dr. Donaldosn in 2 weeks. Follow up with visiting physician, Dr. He in 3 days. DIET: Soft, bland. Discharge planning more than 35 minutes. MMODL / IJN: [id number] /
--- NOTE | 2017-04-16 14:59 | P.PN ---
Subjective 76-year-old male being seen. Patient is status post EGD with biopsy done on the by GI service for coffee-ground emesis. Finding showed a hiatal hernia high-grade esophagitis consistent with acid reflux disease mild gastritis duodenitis no ulcer hemoglobin stable 11.4. Abdomen is soft there's been no further episodes of nausea or vomiting. From a surgical perspective patient is felt to be appropriate to be transferred discharge back to the [facility] facility defer to the attending to the timing of the discharge Objective - Vital Signs Vital signs: Vital Signs Temp 98.6 F 04/16/17 00:42 Pulse 69 04/16/17 00:42 Resp 16 04/16/17 00:42 BP 127/66 04/16/17 00:42 Pulse Ox 95 04/16/17 00:42 Intake & Output 04/15/17 04/16/17 04/16/17 18:59 06:59 18:59 Intake Total 100 550 500 Output Total 1200 Balance 100 -650 500 Weight 68.039 kg Intake: IV 100 Oral 550 500 Output: Urine 1200 Other: Voiding Method Toilet Toilet # Voids 1 3 - Exam Physical exam 76-year-old male sitting up in bed appears in no acute distress Lungs on room air sats are documented 94% no cough noted essentially clear Heart S1-S2 audible and regular no murmur Abdomen no facial grimacing with palpitation to the abdominal wall bowel tones present no stool no reports of nausea vomiting tolerating clear liquid diet nontender not distended Extremity no edema noted - Labs CBC & Chem 7: 04/16/17 06:48 04/16/17 06:48 Labs: Abnormal Lab Results - Last 24 Hours (Table) 04/15/17 04/15/17 04/16/17 Range/Units 17:48 20:31 06:48 RBC 3.64 L (4.30-5.90) m/uL Hgb 11.4 L (13.0-17.5) gm/dL Hct 35.5 L (39.0-53.0) % Chloride (98-107) mmol/L Glucose (74-99) mg/dL POC Glucose (mg/dL) 102 H 142 H (75-99) mg/dL Calcium (8.4-10.2) mg/dL Total Protein (6.3-8.2) g/dL Albumin (3.5-5.0) g/dL 04/16/17 04/16/17 04/16/17 Range/Units 06:48 07:01 12:00 RBC (4.30-5.90) m/uL Hgb (13.0-17.5) gm/dL Hct (39.0-53.0) % Chloride 111 H (98-107) mmol/L Glucose 107 H (74-99) mg/dL POC Glucose (mg/dL) 111 H 122 H (75-99) mg/dL Calcium 8.3 L (8.4-10.2) mg/dL Total Protein 5.5 L (6.3-8.2) g/dL Albumin 2.8 L (3.5-5.0) g/dL Assessment and Plan Plan: Impression Schizophrenia with dementia Seizure disorder Present on admission coffee-ground emesis suspected upper GI bleed possible gastritis Prior abdominal surgeries uncertain as to type Hypertension essential Present on admission leukocytosis resolving Present on admission Possible mild ileus per x-ray abdominal 2 view Type 2 diabetes History of chronic constipation Status post EGD done on April 15 showed high-grade esophagitis with hiatal hernia mild gastritis duodenitis Plan No further surgical recommendations at this time felt to be clinically stable and appropriate proceed with a discharge refer to the attending for the timing of the discharge Resume home meds as appropriate DVT and GI prophylaxis No evidence of an acute abdomen The above impression and plan of care have been discussed and directed by signing physician. Kaylynn Abdalla nurse practitioner acting as scribe for signing physician.
== END 2017-04-16 15:36 | DRG 392 ==
LOC: EC 10:17 → 3SUR 14:04
PROVIDERS: ADMIT Hospitalist; ATTEND Hospitalist
PROC: 0DB58ZX Excision of Esophagus, Via Natural or Artificial Opening Endoscopic, Diagnostic (ICD-10-PCS; principal; 2017-04-13)
DX: K21.0 Gastro-esophageal reflux disease with esophagitis (principal); N17.9 Acute kidney failure, unspecified; F03.90 Unspecified dementia, unspecified severity, without behavioral disturbance, psychotic disturbance, mood disturbance, and anxiety; E11.39 Type 2 diabetes mellitus with other diabetic ophthalmic complication; K44.0 Diaphragmatic hernia with obstruction, without gangrene; G40.909 Epilepsy, unspecified, not intractable, without status epilepticus; F20.9 Schizophrenia, unspecified; K29.70 Gastritis, unspecified, without bleeding; I10 Essential (primary) hypertension; E03.9 Hypothyroidism, unspecified; I25.10 Atherosclerotic heart disease of native coronary artery without angina pectoris; E78.5 Hyperlipidemia, unspecified; K59.09 Other constipation; G24.01 Drug induced subacute dyskinesia; H40.9 Unspecified glaucoma; K29.80 Duodenitis without bleeding; T39.015A Adverse effect of aspirin, initial encounter; Z79.899 Other long term (current) drug therapy; Z79.4 Long term (current) use of insulin; Z79.82 Long term (current) use of aspirin; Z86.73 Personal history of transient ischemic attack (TIA), and cerebral infarction without residual deficits; Z79.891 Long term (current) use of opiate analgesic
CPT/HCPCS: 36415; 43239; 74020; 80053; 82272; 82550; 82553; 83036; 84484; 85025; 85610; 85730; 88305; 88312; 88342; 93005; 94640; 94760; 96361; 96374; 96375; 99285